=== PATIENT | male | born 1955 | race Caucasian/White ===

== ENCOUNTER → 2021-01-25 | Day surgery (SDC) | payer OTHER ==
[~2021-01-25] VITALS: Ht 177.8 cm; Wt 133.8 kg
[~2021-01-25] MED LIST: ADALAT CC90 MG PO; CARDURA2 MG PO; CELEXA10 MG PO; CENTRUM SILVER1 EAC1 PO; COREG 6.25MG6.25 MG PO; COZAAR100 MG PO; GLYBURIDE 5MG TA5 MG PO; JANUVIA50 MG PO; LOVAZA1 GM PO; METFORMIN HCL500 MG PO; MICRONASE5 MG PO; PRAVACHOL20 MG PO; PRINIVIL20 MG PO; SODIUM BICARBO650 M1 PO; SPECIAL C 5001 EACH PO; SYNTHROID100 MCG PO; TIMOLOL MALEATE5 M2 OU; VIBRAMYCIN100 MG PO
[2021-01-25 08:07] LABS: HGB 12.1 g/dl (13.2-18.0); MCH 29.8 pg (25.0-31.0); MCHC 33.6 g/dL (32.0-36.0); MCV 88.7 fL (78.0-100.0); MPV 10.4 fL (6.0-9.5); RBC 4.06 M/uL (4.70-6.00); RDW 14.1 % (11.5-14.0)
[2021-01-25 08:40] LABS: ALBUMIN 3.6 g/dL (3.4-5.0); BILIRUBIN - TOTAL 0.4 mg/dL (0.2-1.0); BUN/CREAT RATIO (CALC) 13.2 RATIO; CREATININE 1.9 mg/dL (0.67-1.17); GLOBULIN (CALCULATION) 3.5 g/dL; POTASSIUM 3.6 mmol/L (3.5-5.1); TOTAL PROTEIN 7.1 g/dL (6.4-8.2)
== END | disposition home or self-care (01) ==
LOC: FAS 07:16
PROVIDERS: Surgery
DX: Z12.11 Encounter for screening for malignant neoplasm of colon (principal); K63.5 Polyp of colon; I10 Essential (primary) hypertension; E78.00 Pure hypercholesterolemia, unspecified; E03.9 Hypothyroidism, unspecified; G47.30 Sleep apnea, unspecified; Z99.89 Dependence on other enabling machines and devices; Z79.84 Long term (current) use of oral hypoglycemic drugs; Z79.899 Other long term (current) drug therapy
CPT/HCPCS: 36415; 80053; J1610; J2250; J2704; J7120